=== PATIENT | male | born 1965 | race Two or more races ===

== ENCOUNTER 2021-08-02 23:59 | Emergency (ER) | payer BC, OTHER ==
[~2021-08-02] VITALS: Ht 170.2 cm; Wt 70.8 kg
[2021-08-03 01:16] VITALS: BP 110/72
== END 2021-08-03 01:11 | disposition left against medical advice (07) ==
LOC: EDBD 23:59 → ER 23:59
DX: R55 Syncope and collapse (principal); Z53.21 Procedure and treatment not carried out due to patient leaving prior to being seen by health care provider